=== PATIENT | female | born 1985 | race African-American/Black ===

== ENCOUNTER 2022-08-20 06:36 | Emergency (ER) | payer MEDICAID ==
[~2022-08-20] VITALS: Ht 157.5 cm; Wt 49.0 kg
[2022-08-20] MEDS ORDERED: ACETAMINOPHEN 325MG TABLET PO STA (08:45)
[2022-08-20 09:24] LABS: BASOPHILS % 0.7 % (0.0-2.0); EOSINOPHILS % 0.2 % (0.0-5.0); HEMATOCRIT. 30.2 % (36.0-48.0); HEMOGLOBIN. 9.5 g/dL (12.0-16.0); LYMPHOCYTES % 20.5 % (20.0-50.0); MEAN CORPUSCULAR HEMOGLOBIN 33.1 pg (28.0-32.0); MEAN CORPUSCULAR VOLUME 104.8 fL (81.0-99.0); MEAN PLATELET VOLUME 9.5 fl (7.4-10.4); MONOCYTES % 11.9 % (2.0-8.0); NEUTROPHILS % 66.7 % (40.0-76.0); PLATELET 179 x1000/uL (130-400); RED BLOOD CELL COUNT 2.88 mill/uL (4.2-5.4)
[2022-08-20 09:33] LABS: CHLORIDE 99 mEq/L (98-107)
[2022-08-20] MEDS ORDERED: SODIUM CHLORIDE 0.9% 1,000 ML IV ONE ×2 (10:15)
[2022-08-20] MEDS ORDERED: MORPHINE SULFATE 4 MG/ML CPJ (NOT FOR IM USE) IV ONE (10:15)
[2022-08-20 10:43] LABS: HCG SCREEN NEGATIVE
[2022-08-20] MEDS ORDERED: IOHEXOL-300 100 ML BOTTLE ONE (12:30)
[2022-08-20 13:39] VITALS: BP 131/109
== END 2022-08-20 14:06 | disposition short-term general hospital (02) ==
LOC: ER 06:36
DX: K85.90 Acute pancreatitis without necrosis or infection, unspecified (principal)
CPT/HCPCS: 36415; 74177; 80053; 83690; 84703; 85025; 96361; 96374; 99285; J2270; J7030; Q9967